=== PATIENT | female | born 1995 | race Caucasian/White ===

== ENCOUNTER 2020-09-15 12:29 | Outpatient (CLI) | payer BC | END 2020-09-15 12:30 | disposition home or self-care (01) | LOC: COV 12:29 | PROVIDERS: ATTEND Family Medicine | DX: R05 Cough (principal); Z20.828 Contact with and (suspected) exposure to other viral communicable diseases; J02.9 Acute pharyngitis, unspecified; R09.81 Nasal congestion; R53.83 Other fatigue ==

== ENCOUNTER 2020-10-27 08:00 | Outpatient (CLI) | payer BC ==
[2020-10-27 21:57] LABS: CANDIDA GROUP DNA POSITIVE (NEGATIVE); CANDIDA KRUSEI DNA NEGATIVE (NEGATIVE); TRICHOMONAS VAGINALIS DNA NEGATIVE (NEGATIVE)
[2020-10-28 18:34] LABS: TRICHOMONAS VAGINALIS DNA NEGATIVE (NEGATIVE)
== END 2020-10-27 08:01 | disposition home or self-care (01) ==
LOC: LAB.R 08:00
PROVIDERS: ATTEND Physician Assistant
DX: N89.8 Other specified noninflammatory disorders of vagina (principal); N76.0 Acute vaginitis
CPT/HCPCS: 87491; 87591; 87661; 87801

== ENCOUNTER 2020-10-28 12:17 | Outpatient (CLI) | payer BC | END 2020-10-28 12:18 | disposition home or self-care (01) | LOC: COV 12:17 | PROVIDERS: ATTEND Family Medicine | DX: R53.83 Other fatigue (principal); Z20.828 Contact with and (suspected) exposure to other viral communicable diseases; J02.9 Acute pharyngitis, unspecified; R09.81 Nasal congestion ==

== ENCOUNTER 2021-05-14 12:55 | Emergency (ER) | payer BC ==
[2021-05-14 13:21] LABS: BASOPHILS % (AUTO) 0.5 %; EOSINOPHILS # (AUTO) 0.1 10^3/uL (0.0-0.7); EOSINOPHILS % (AUTO) 1.5 %; HCT - HEMATOCRIT 39.9 % (37.0-47.0); HGB - HEMOGLOBIN 13.9 g/dL (12.0-16.0); LYMPHOCYTES # (AUTO) 2.4 10^3/uL (1.5-3.5); LYMPHOCYTES % (AUTO) 32.9 %; MEAN CORPUSCULAR HEMOGLOBIN 32.6 pg (27.0-31.0); MEAN CORPUSCULAR HGB CONC 34.8 g/dL (32.0-36.0); MEAN CORPUSCULAR VOLUME 93.4 fL (81.0-99.0); MEAN PLATELET VOLUME 10.6 fL (7.9-10.8); MONOCYTES # (AUTO) 0.5 10^3/uL (0.0-1.0); MONOCYTES % (AUTO) 7.1 %; NEUTROPHILS # (AUTO) 4.2 10^3/uL (1.5-6.6); NEUTROPHILS % (AUTO) 57.7 %; PLT - PLATELET COUNT 207 10^3/uL (130-450); RED BLOOD COUNT 4.27 10^6/uL (4.20-5.40); WHITE BLOOD COUNT 7.4 x10^3/uL (4.8-10.8)
[2021-05-14 13:39] LABS: ALBUMIN 5.2 g/dL (3.2-5.5); ALBUMIN/GLOBULIN RATIO 2.6 (1.0-2.2); BILIRUBIN,TOTAL 0.7 mg/dL (0.2-1.0); CALCIUM 9.3 mg/dL (8.5-10.3); CREATININE 0.6 mg/dL (0.4-1.0); POTASSIUM 3.5 mmol/L (3.5-5.0); TOTAL PROTEIN 7.2 g/dL (6.7-8.2)
[2021-05-14 13:42] LABS: BILIRUBIN,URINE NEGATIVE (NEGATIVE); GLUCOSE, URINE (UA) NEGATIVE (NEGATIVE); KETONES,URINE (UA) NEGATIVE (NEGATIVE); LEUKOCYTE ESTERASE, URINE NEGATIVE (NEGATIVE); NITRITE,URINE NEGATIVE (NEGATIVE); OCCULT BLOOD,URINE NEGATIVE (NEGATIVE); PROTEIN,URINE NEGATIVE (NEGATIVE); UROBILINOGEN,URINE 0.2 (NORMAL) E.U./dL (NORMAL)
[2021-05-14 13:45] LABS: CLARITY,URINE CLEAR (CLEAR); HCG UR QUAL NEGATIVE
[2021-05-14] MEDS ORDERED: KETOROLAC 15 MG/ML VIAL IVP STA (14:04)
[2021-05-14 14:20] VITALS: BP 107/71
--- NOTE | 2021-05-14 14:37 | ED Physician Documentation ---
History of Present Illness - Stated complaint Stated Complaint: PELVIC PX - Chief complaint Chief Complaint: Abd Pain - History obtained from History obtained from: Patient - Additonal information Additional information: 25-year-old woman presents with a sudden onset pain yesterday evening about 30 minutes after having sex. It was in the right lower quadrant, nonradiating, sharp, sudden onset, severe, constant and tapering down in severity, but still present today, therefore she decided to come in to get checked. Also with nausea at the height of the pain. Denies vomiting, back pain, fever, urinary symptoms. Last menstrual period 4 years ago. She has an IUD. Review of Systems Ten Systems: 10 systems reviewed and negative Constitutional: denies: Fever, Chills GI: reports: Abdominal Pain, Nausea. 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 - Present Medications Home Medications: Ambulatory Orders Medication Instructions Recorded Confirmed FLUoxetine [PROzac] 20 mg PO DAILY 05/14/21 05/14/21 Ibuprofen [Motrin] 1 tab PO Q6HR PRN 05/14/21 05/14/21 - Allergies Allergies/Adverse Reactions: Allergies Allergy/AdvReac Type Severity Reaction Status Date / Time Penicillins Allergy Hives Verified 05/14/21 14:16 - Social History Does the pt smoke?: No Smoking Status: Never smoker Does the pt drink ETOH?: Yes PD ED PE NORMAL - Vitals Vital signs reviewed: Yes - General General: Alert and oriented X 3, No acute distress, Well developed/nourished - HEENT HEENT: Atraumatic, PERRL, EOMI - Neck Neck: Supple, no meningeal sign - Cardiac Cardiac: RRR - Respiratory Respiratory: No respiratory distress, Clear bilaterally - Abdomen Abdomen: Non tender, Non distended, Other (Discomfort to right lower quadrant palpation) - Back Back: No CVA TTP - Derm Derm: Normal color, Warm and dry - Extremities Extremities: No deformity - Neuro Neuro: Alert and oriented X 3 - Psych Psych: Normal mood, Normal affect Results - Vitals Vitals: Vital Signs - 24 hr 05/14/21 05/14/21 12:57 14:17 Temperature 36.7 C Heart Rate 66 59 L Respiratory 16 16 Rate Blood Pressure 138/78 H 107/71 O2 Saturation 100 100 Oxygen O2 Source Room air - Labs Labs: Laboratory Tests 05/14/21 05/14/21 05/14/21 13:04 13:06 13:06 WBC 7.4 RBC 4.27 Hgb 13.9 Hct 39.9 MCV 93.4 MCH 32.6 H MCHC 34.8 RDW 12.0 Plt Count 207 MPV 10.6 Neut # (Auto) 4.2 Lymph # (Auto) 2.4 [place] # (Auto) 0.5 Eos # (Auto) 0.1 Baso # (Auto) 0.0 Absolute Nucleated RBC 0.00 Nucleated RBC % 0.0 Sodium 137 Potassium 3.5 Chloride 101 Carbon Dioxide 28 Anion Gap 8.0 BUN 7 Creatinine 0.6 Estimated GFR (MDRD) 121 Glucose 92 Calcium 9.3 Total Bilirubin 0.7 AST 20 ALT 18 Alkaline Phosphatase 59 Total Protein 7.2 Albumin 5.2 Globulin 2.0 L Albumin/Globulin Ratio 2.6 H Lipase 25 Urine Color LIGHT YELLOW Urine Clarity CLEAR Urine pH 7.0 Ur Specific [place] 1.010 Urine Protein NEGATIVE Urine Glucose (UA) NEGATIVE Urine Ketones NEGATIVE Urine Occult Blood NEGATIVE Urine Nitrite NEGATIVE Urine Bilirubin NEGATIVE Urine Urobilinogen 0.2 (NORMAL) Ur Leukocyte Esterase NEGATIVE Ur Microscopic Review NOT INDICATED Urine Culture Comments NOT INDICATED Urine HCG, Qual NEGATIVE PD MEDICAL DECISION MAKING - ED course ED course: 25-year-old woman presents with ruptured ovarian cyst. Education given return precautions given. She will follow up with [facility]. Departure - Departure Disposition: 01 Home, Self Care Clinical Impression: Ruptured ovarian cyst Condition: Good Instructions: Cyst Ruptured Ovarian Tx Follow-Up: Heidi Hollins MD [Provider Admit Priv/Credential] - Comments: You are seen in the emergency department for a ruptured ovarian cyst. Please follow-up with [facility]. Return to the emergency department if you have any new or worsening symptoms or other concerns.
--- NOTE | 2021-05-14 14:58 | Ultrasound Report ---
PROCEDURE: Pelvic w/Transvag+Doppler Comp INDICATIONS: RLQ pain sudden onset today TECHNIQUE: Real-time scanning was performed of the pelvic organs, with image documentation. Additional endovagi nal scanning was necessary due to incomplete visualization of the adnexal and endometrial structures by transabdominal scanning. COMPARISON: None. FINDINGS: No pathologic free abdominal fluid. Uterus: Uterus is normal in size at 8 x 3.1 x 4.5 cm. The endometrium measures 2.3 mm in combined t hickness. Intrauterine device is seen in its normal central endometrial location.. No endometrial mas s or fluid. No discrete uterine fibroid. Small amount of fluid is noted in endocervical canal. Ovaries: Right ovary measures 4.6 x 2 x 2.1 cm in size. Left ovary measures 4.7 x 2.1 x 2.7 cm in si ze. There is suggestion of a ruptured complex cyst involving right ovary measures 1.4 x 0.9 x 1.7 cm in size. Moderate amount of free fluid is seen inferior to the right ovary and within posterior cul-d e-sac. No solid-appearing ovarian lesion is seen. Normal blood flow is seen in bilateral ovaries on c olor Doppler images. IMPRESSION: 1. Finding is suggestive of a ruptured right ovarian cyst measures 1.4 x 0.9 x 1.7 cm in size with mo derate amount of free fluid in right adnexa and in posterior cul-de-sac. No evidence of ovarian torsi on. 2. Small amount of fluid within cervical canal. No endometrial mass or fluid. Intrauterine device is seen in its normal central endometrial location. Reviewed by: Sukumar Price MD on 05/14/2021 2:57 PM PDT Approved by: Sukumar Price MD on 05/14/2021 2:57 PM PDT Station ID: [id number]
== END 2021-05-14 14:58 | disposition home or self-care (01) ==
LOC: ED 12:55
DX: N83.201 Unspecified ovarian cyst, right side (principal)
CPT/HCPCS: 36415; 80053; 81001; 81003; 81025; 83690; 85025; 87086; 93975; 96374; 99284

== ENCOUNTER 2021-06-17 18:54 | Outpatient (CLI) | payer BC | END 2021-06-17 18:55 | disposition home or self-care (01) | LOC: COV 18:54 | PROVIDERS: ATTEND Family Medicine | DX: Z20.822 Contact with and (suspected) exposure to COVID-19 (principal) ==